=== PATIENT | female | born 1945 | race Caucasian/White ===

== ENCOUNTER 2019-04-19 18:33 | Inpatient (IN) | payer MEDICARE, MEDICAID ==
--- NOTE | 2019-04-19 18:51 | ED Physician Chart ---
ED Chief Complaint/HPI - Patient Information Date Seen:: 04/19/19 Time Seen:: 18:46 Chief Complaint:: cough History of Present Illness:: this is a 73 yo old female sent from the [facility] for an evaluation and treatment of lung congestion with a deep cough Allergies:: Allergies Allergy/AdvReac Type Severity Reaction Status Date / Time Penicillins Allergy Verified 04/19/19 18:36 Historian:: Patient, Medical Records Review:: Nurse's Note Reviewed, Old Chart Reviewed ED Review of Systems - Review of Systems General/Constitutional: No fever, No chills, No weight loss, No weakness, No diaphoresis, No edema, No loss of appetite Skin: No skin lesions, No rash, No bruising Head: No headache, No light-headedness Eyes: No loss of vision, No pain, No diplopia ENT: No earache, No nasal drainage, No sore throat, No tinnitus Neck: No neck pain, No swelling, No thyromegaly, No stiffness, No mass noted Cardio Vascular: No chest pain, No palpitations, No PND, No orthopnea, No edema Pulmonary: No SOB, Cough, No sputum, No wheezing GI: No nausea, No vomiting, No diarrhea, No pain, No melena, No hematochezia, No constipation, No hematemesis G/U: No dysuria, No frequency, No hematuria Musculoskeletal: No bone or joint pain, No back pain, No muscle pain Endocrine: No polyuria, No polydipsia Psychiatric: No prior psych history, No depression, No anxiety, No suicidal ideation Hematopoietic: No bruising, No lymphadenopathy Allergic/Immuno: No urticaria, No angioedema Neurological: No syncope, No focal symptoms, No weakness, No paresthesia, No headache, No seizure, No dizziness, No confusion, No vertigo ED Past Medical History - Past Medical History Obtainable: No Past Medical History: DM, CAD, CVA/TIA, PUD/GERD, Seizures Family History: None Social History: Non Smoker, No Alcohol, No Drug Use, Care Facility Surgical History: None Psychiatricy History: None Medication: Reviewed ED Physical Exam - Physical Examination General/Constitutional: Awake, Well-developed, well-nourished, Alert, No distress, GCS 15, Non-toxic appearing, Ambulatory Head: Atraumatic Eyes: Lids, conjuctiva normal, PERRL, EOMI Skin: Nl inspection, No rash, No skin lesions, No ecchymosis, Well hydrated, No lymphadenopathy ENMT: External ears, nose nl, Nasal exam nl, Lips, teeth, gums nl Neck: Nontender, Full ROM w/o pain, No JVD, No nuchal rigidity, No bruit, No mass, No stridor Respiratory: Nl effort/Exclusion, Clear to Auscultation, No Wheeze/Rhonchi/ Rales (there are bilateral ronchi and wheezes) Cardio Vascular: RRR, No murmur, gallop, rubs, NL S1 S2 GI: No tenderness/rebounding/guarding, No organomegaly, No hernia, Normal BS's, Nondistended, No mass/bruits, No McBurney tenderness : No CVA tenderness Extremities: No tenderness or effusion, Full ROM, normal strength in all extremities, No edema, Normal digits & nails Neuro/Psych: Alert/oriented, DTR's symmetric, Normal sensory exam, Normal motor strength, Judgement/insight normal, Mood normal, Normal gait, No focal deficits Misc: Normal back, No paraspinal tenderness ED Assessment - Assessment General Assessment: bronchitis dr saldana will check the x-ray and labs and disposition the patient ED Septic Shock - . Is Septic Shock (SBP<90, OR Lactate>4 mmol\L) present?: No
[2019-04-19 19:09] LABS: % BASOPHILS 1.8 % (0.0-2.0); % EOSINOPHILS 6.5 % (0.0-5.0); % LYMPHOCYTES 18.2 % (20.0-50.0); % NEUTROPHILS 64.5 % (40.0-80.0); BASOPHILE ABSOLUTE 0.2 Th/cumm (0-0.2); EOSINOPHILE ABSOLUTE 0.6 Th/cmm (0.1-0.4); HEMATOCRIT 34.6 % (41.0-60); HEMOGLOBIN 11.6 gm/dL (12-16); LYMPHOCYTE ABSOLUTE 1.7 Th/cmm (1.5-3.0); MEAN CORPUSCULAR HEMOGLOBIN 29.6 pg (27.0-31.0); MEAN CORPUSCULAR HGB CONC 33.7 pg (28.0-36.0); MONOCYTE ABSOLUTE 0.8 Th/cmm (0.3-1.0); NEUTROPHILE ABSOLUTE 5.8 Th/cmm (1.8-8.0); PLATELET COUNT 449 Th/cmm (150-400); RED BLOOD COUNT 3.93 Mil/cmm (3.80-5.20); RED CELL DISTRIBUTION WIDTH 15.3 % (11.5-20.0); WHITE BLOOD COUNT 9.1 Th/cmm (4.8-10.8)
[2019-04-19 19:22] LABS: INR 0.97 (0.5-1.4)
[2019-04-19 19:29] LABS: ALB/GLOB RATIO 0.7 (1.0-1.8); ALBUMIN 2.5 gm/dL (3.7-5.3); ALKALINE PHOSPHATASE 105 U/L (34-104); ANION GAP 13.9 (7.0-16.0); BILIRUBIN,TOTAL 0.3 mg/dL (0.3-1.0); BUN - UREA NITROGEN 9 mg/dL (7-25); CALCIUM SERUM 8.9 mg/dL (8.6-10.3); CARBON DIOXIDE 25.3 mEq/L (21.0-31.0); CHLORIDE 100 mEq/L (98-107); CREATININE - SERUM 0.8 mg/dL (0.6-1.2); GLUCOSE 117 mg/dL (70-105); POTASSIUM SERUM 4.2 mEq/L (3.5-5.1); SGOT 14 U/L (13-39); SGPT/ALT 10 U/L (7-52); SODIUM SERUM 135 mEq/L (136-145); TOTAL PROTEIN,SERUM 6.1 gm/dL (6.0-8.3)
[2019-04-19] MEDS ORDERED: Azithromycin 500 MG in Sodium Chloride 0.9% 250 ML IV ONE (19:37)
[2019-04-19] MEDS ORDERED: cefTRIAXone 1 GM in Sodium Chloride 0.9% 50 ML IV SCH (22:45)
[2019-04-19] MEDS: Sodium Chloride 0.45% 1,000 ML IV SCH (23:55)
[2019-04-20 06:17] LABS: URINE SOURCE CLEAN C
[2019-04-20 06:21] LABS: URINE BILIRUBIN NEGATIVE (NEGATIVE); URINE BLOOD LARGE (NEGATIVE); URINE GLUCOSE (UA) NEGATIVE (NEGATIVE); URINE KETONE NEGATIVE (NEGATIVE); URINE LEUKOCYTE ESTERASE LARGE (NEGATIVE); URINE MICROSCOPIC INDICATED? YES; URINE NITRATE NEGATIVE (NEGATIVE); URINE PH 6.5 (4.6 - 8.0); URINE PROTEIN NEGATIVE (NEGATIVE); URINE UROBILINOGEN 0.2 E.U./dL (0.2 - 1.0)
[2019-04-20 06:30] LABS: URINE CLARITY CLOUDY (CLEAR); URINE COLOR YELLOW
[2019-04-20 06:38] LABS: URINE BACTERIA FEW /hpf (NONE SEEN); URINE EPITHELIAL CELLS FEW /lpf (FEW)
[2019-04-20 06:45] LABS: URINE RBC 25-50 /hpf (0-5)
[2019-04-20] MEDS ORDERED: Levofloxacin 500mg/100mL 500 MG/100 ML BAG IV ONE (10:00)
[2019-04-20] MEDS ORDERED: VTE Chemical Prophylaxis Screen/Admission MC PRN (10:11)
[2019-04-20 10:20] VITALS: BP 96/45
[2019-04-20] MEDS ORDERED: Magnesium Hydroxide (MOM) 30 mL UDC PO PRN (12:43)
[2019-04-20] MEDS ORDERED: Fleet Enema 135 mL RC PRN (12:43)
[2019-04-20] MEDS ORDERED: Albuterol Nebulizer 2.5mg/3mL HHN PRN (12:43)
[2019-04-20] MEDS ORDERED: APAP/Oxycodone 5/325mg Tab PO PRN (12:43)
[2019-04-20] MEDS ORDERED: Heparin Sod 5,000Units/ML 5,000 UNITS/ML VIAL SUBQ SCH (12:45)
[2019-04-20] MEDS: Multivitamin w/ Minerals Tab PO SCH (14:09)
[2019-04-20] MEDS: INSULIN LISPRO SLIDING SCALE 100 UNITS/ML UNIT SUBQ SCH ×2 (16:22→20:36)
--- NOTE | 2019-04-20 16:43 | Diagnostic Imaging Report ---
CHEST X-RAY: AP view INDICATION: Congestion COMPARISON: None FINDINGS: Chronic lung changes are noted. Patient is rotated. No focal consolidation or effusions. Mild cardiomegaly is noted. Right apical pleural thickening is noted. There is spinal scoliosis. IMPRESSION: Left chronic interstitial lung changes. No focal consolidation identified Mild cardiomegaly.
--- NOTE | 2019-04-20 16:44 | History & Physical ---
ADMIT DATE: 04/20/2019 CHIEF COMPLAINT: Cough. HISTORY OF PRESENT ILLNESS: This is a 73-year-old female who was originally from senior living, was sent in for evaluation to [facility] due to cough and congestion. From Emergency Room, workup was done and the patient was diagnosed with bronchitis and the patient was hence admitted to Med/Surg unit for closer monitoring. REVIEW OF SYSTEMS: GENERAL: This is a 73-year-old female. No fever. No weakness. HEENT: No headache. No dizziness. EYES: No eye pain or blurring vision. NECK: No neck pain or nuchal rigidity. CHEST: No chest pain or palpitation. PULMONARY: Positive cough, positive chest congestion. GASTROINTESTINAL: No abdominal pain, no constipation, no diarrhea. MUSCULOSKELETAL: No joint pain. No muscle pain. SOCIAL HISTORY: The patient lives in a alf facility prior to hospitalization. Denies nicotine. Denies alcohol. Denies illicit drug use. PAST SURGICAL HISTORY: Unremarkable. FAMILY HISTORY: Unremarkable. PAST MEDICAL HISTORY: Includes hypertension, diabetes, osteoarthritis. PHYSICAL EXAMINATION: VITAL SIGNS: Temperature 98.1, heart rate of 106, blood pressure 96/45, respiration 18, 94% on 3 liters via nasal cannula. GENERAL: This is a 73-year-old female that appears as stated in no acute distress. HEENT: Head is atraumatic and normocephalic. Eyes: Bilateral conjunctivae are clear. Bilateral pupils equal, round and reactive. NECK: Supple. No JVD. CARDIOVASCULAR: S1, S2, without murmur. PULMONARY: Clear to auscultation, resonant with decreased breath sounds. GASTROINTESTINAL: Soft and nontender without guarding. Positive bowel sounds. MUSCULOSKELETAL: No clubbing. No cyanosis noted. ASSESSMENT: 1. Bronchitis. 2. Hypertension. 3. Diabetes. 4. Osteoarthritis. PLAN: We will admit the patient to Med/Surg. We will do medication reconciliation accordingly. We will have followup chest x-ray. Treatment plans were discussed with the patient's nurse. Treatment plans were discussed with Dr. Matamoros. JOB# [id number]
[2019-04-20] MEDS: Pantoprazole 40 mg EC Tab PO SCH (17:14)
[2019-04-20] MEDS: Sodium Chloride 0.45% 1,000 ML IV SCH (18:26)
[2019-04-20] MEDS: Heparin Sod 5,000Units/ML 5,000 UNITS/ML VIAL SUBQ SCH (20:35)
[2019-04-20] MEDS: Codeine /Guaifenesin 200mg-20mg/10 mL UDC PO PRN (23:27)
--- NOTE | 2019-04-21 04:00 | Consultation ---
DATE OF CONSULTATION: 04/21/2019 HISTORY OF PRESENT ILLNESS: This is a 73-year-old female with a past medical history of hypertension, diabetes mellitus type 2, and osteoarthritis, brought from alf for severe cough and congestion. On initial evaluation, the patient's temperature was 100.2 degrees Fahrenheit and WBC count was 9100. As the patient has cough, chest x-ray was performed and it showed left chronic interstitial lung changes, no focal consolidation, mild cardiomegaly. PMH: Hypertension, diabetes mellitus type 2, and osteoarthritis. ALLERGIES: NKDA. SH: Lives a the SNF. NO smoking, no alcohol or drug use. MEDICATIONS: The patient is on Rocephin and Robitussin. SOCIAL HISTORY: The patient lives in a alf. No significant history of cough. ROS: GEN: No fever, no chills. No generalized weakness. HEENT: No diplopia, no photophobia. No sorethroat. RS: There is cough, no SOB. CVS: No CP, no palpitations. GI: No N/V/D/C/ abd pains. : No dysuria. no hematuria. FLEX O WRITER OPERATOR: no headache, no dizziness. no focal wealness. PHYSICAL EXAMINATION: GEN: comfortable, not in any distress, HEENT: HEAD: NC NT. ORAL CAVITY: Moist, pink tongue, EYES: Pupil PERRLA. No pallor, no icterus. NECK: Supple, no JVD, no use of accessory neck muscles. CHEST: Vesicular breath sounds, no crackles, no wheezing, HEART: S1 and S2 WNL. ABD: Soft, NT ND, BS present. EXTREMITIES: NCCE. FLEX O WRITER OPERATOR: Alert awake oriented x3. LAB: WBC: 7,900. CXR: NAD. IMPRESSION: 1. Early pneumonia versus bronchitis. 2. Hypertension. RECOMMENDATIONS: Continue Levaquin. Thank you, Dr. Alix Matamoros, for involving me in taking care of this patient. JOB# [id number] VINCENT
[2019-04-21 05:56] LABS: % BASOPHILS 2.3 % (0.0-2.0); % EOSINOPHILS 8.2 % (0.0-5.0); % LYMPHOCYTES 20.1 % (20.0-50.0); % MONOCYTES 14.6 % (2.0-10.0); % NEUTROPHILS 54.8 % (40.0-80.0); BASOPHILE ABSOLUTE 0.2 Th/cumm (0-0.2); EOSINOPHILE ABSOLUTE 0.6 Th/cmm (0.1-0.4); HEMATOCRIT 31.8 % (41.0-60); HEMOGLOBIN 10.7 gm/dL (12-16); LYMPHOCYTE ABSOLUTE 1.6 Th/cmm (1.5-3.0); MEAN CELL VOLUME 87.5 fl (81-100); MEAN CORPUSCULAR HEMOGLOBIN 29.4 pg (27.0-31.0); MEAN CORPUSCULAR HGB CONC 33.6 pg (28.0-36.0); MONOCYTE ABSOLUTE 1.2 Th/cmm (0.3-1.0); NEUTROPHILE ABSOLUTE 4.3 Th/cmm (1.8-8.0); PLATELET COUNT 453 Th/cmm (150-400); RED BLOOD COUNT 3.63 Mil/cmm (3.80-5.20); RED CELL DISTRIBUTION WIDTH 15.3 % (11.5-20.0); WHITE BLOOD COUNT 7.9 Th/cmm (4.8-10.8)
[2019-04-21 06:09] LABS: ANION GAP 9.9 (7.0-16.0); BUN - UREA NITROGEN 5 mg/dL (7-25); CALCIUM SERUM 8.5 mg/dL (8.6-10.3); CARBON DIOXIDE 26.7 mEq/L (21.0-31.0); CHLORIDE 105 mEq/L (98-107); CREATININE - SERUM 0.7 mg/dL (0.6-1.2); GLUCOSE 99 mg/dL (70-105); POTASSIUM SERUM 3.6 mEq/L (3.5-5.1); SODIUM SERUM 138 mEq/L (136-145)
[2019-04-21] MEDS: INSULIN LISPRO SLIDING SCALE 100 UNITS/ML UNIT SUBQ SCH ×4 (06:30→21:14)
[2019-04-21] MEDS: Pantoprazole 40 mg EC Tab PO SCH (06:36)
[2019-04-21] MEDS: Multivitamin w/ Minerals Tab PO SCH (08:18)
[2019-04-21] MEDS: Lactulose 10 Gm/15 mL 30mL UDC PO PRN ×2 (08:18→16:39)
[2019-04-21] MEDS: Heparin Sod 5,000Units/ML 5,000 UNITS/ML VIAL SUBQ SCH ×2 (08:19→20:55)
[2019-04-21] MEDS: Levofloxacin 250mg/50mL 250 MG/50 ML BAG IV SCH (09:16)
[2019-04-21] MEDS: Sodium Chloride 0.45% 1,000 ML IV SCH (14:37)
[2019-04-21] MEDS: Codeine /Guaifenesin 200mg-20mg/10 mL UDC PO PRN (15:31)
--- NOTE | 2019-04-21 15:56 | Internal Medicine Prog Note ---
Internal Medicine Subjective - Subjective Service Date: 04/21/19 Patient seen and examined:: with staff Patient is:: awake, verbal, talking Patient Complaints of:: other (wants self disimpaction) Per staff patient has:: no adverse event, no episodes of fall Internal Medicine Objective - Results Result Diagrams: 04/21/19 05:10 04/21/19 05:10 Recent Labs: Laboratory Last Values WBC 7.9 Th/cmm (4.8-10.8) 04/21/19 05:10 RBC 3.63 Mil/cmm (3.80-5.20) L 04/21/19 05:10 Hgb 10.7 gm/dL (12-16) L 04/21/19 05:10 Hct 31.8 % (41.0-60) L 04/21/19 05:10 MCV 87.5 fl (81-100) 04/21/19 05:10 MCH 29.4 pg (27.0-31.0) 04/21/19 05:10 MCHC Differential 33.6 pg (28.0-36.0) 04/21/19 05:10 RDW 15.3 % (11.5-20.0) 04/21/19 05:10 Plt Count 453 Th/cmm (150-400) H 04/21/19 05:10 MPV 8.1 fl 04/21/19 05:10 Neutrophils % 54.8 % (40.0-80.0) 04/21/19 05:10 Lymphocytes % 20.1 % (20.0-50.0) 04/21/19 05:10 Monocytes % 14.6 % (2.0-10.0) H 04/21/19 05:10 Eosinophils % 8.2 % (0.0-5.0) H 04/21/19 05:10 Basophils % 2.3 % (0.0-2.0) H 04/21/19 05:10 PT 10.1 SECONDS (9.5-11.5) 04/19/19 19:00 INR 0.97 (0.5-1.4) 04/19/19 19:00 PTT (Actin FS) 25.6 SECONDS (26.0-38.0) L 04/19/19 19:00 Sodium 138 mEq/L (136-145) 04/21/19 05:10 Potassium 3.6 mEq/L (3.5-5.1) 04/21/19 05:10 Chloride 105 mEq/L (98-107) 04/21/19 05:10 Carbon Dioxide 26.7 mEq/L (21.0-31.0) 04/21/19 05:10 Anion Gap 9.9 (7.0-16.0) 04/21/19 05:10 BUN 5 mg/dL (7-25) L 04/21/19 05:10 Creatinine 0.7 mg/dL (0.6-1.2) 04/21/19 05:10 Est GFR ( Amer) TNP 04/21/19 05:10 Est GFR (Non-Af Amer) TNP 04/21/19 05:10 BUN/Creatinine Ratio 7.1 04/21/19 05:10 Glucose 99 mg/dL (70-105) 04/21/19 05:10 POC Glucose 105 MG/DL (70 - 105) 04/21/19 11:12 Calcium 8.5 mg/dL (8.6-10.3) L 04/21/19 05:10 Total Bilirubin 0.3 mg/dL (0.3-1.0) 04/19/19 19:00 AST 14 U/L (13-39) 04/19/19 19:00 ALT 10 U/L (7-52) 04/19/19 19:00 Alkaline Phosphatase 105 U/L (34-104) H 04/19/19 19:00 Troponin I < 0.01 ng/mL (0.01-0.05) L 04/19/19 19:00 Total Protein 6.1 gm/dL (6.0-8.3) 04/19/19 19:00 Albumin 2.5 gm/dL (3.7-5.3) L 04/19/19 19:00 Globulin 3.6 gm/dL 04/19/19 19:00 Albumin/Globulin Ratio 0.7 (1.0-1.8) L 04/19/19 19:00 TSH 3.65 uIU/ml (0.34-5.60) 04/19/19 19:00 Urine Source CLEAN C 04/20/19 06:00 Urine Color YELLOW 04/20/19 06:00 Urine Clarity CLOUDY (CLEAR) H 04/20/19 06:00 Urine pH 6.5 (4.6 - 8.0) 04/20/19 06:00 Ur Specific [place] 1.010 (1.005-1.030) 04/20/19 06:00 Urine Protein NEGATIVE mg/dL (NEGATIVE) 04/20/19 06:00 Urine Glucose (UA) NEGATIVE mg/dL (NEGATIVE) 04/20/19 06:00 Urine Ketones NEGATIVE mg/dL (NEGATIVE) 04/20/19 06:00 Urine Blood LARGE (NEGATIVE) H 04/20/19 06:00 Urine Nitrate NEGATIVE (NEGATIVE) 04/20/19 06:00 Urine Bilirubin NEGATIVE (NEGATIVE) 04/20/19 06:00 Urine Urobilinogen 0.2 E.U./dL (0.2 - 1.0) 04/20/19 06:00 Ur Leukocyte Esterase LARGE (NEGATIVE) H 04/20/19 06:00 Urine RBC 25-50 /hpf (0-5) H 04/20/19 06:00 Urine WBC 10-25 /hpf (0-5) H 04/20/19 06:00 Ur Epithelial Cells FEW /lpf (FEW) 04/20/19 06:00 Urine Bacteria FEW /hpf (NONE SEEN) 04/20/19 06:00 - Physical Exam Vitals and I&O: Vital Signs Temp 98.6 F 04/21/19 15:29 Pulse 103 04/21/19 15:29 Resp 20 04/21/19 15:29 BP 113/59 04/21/19 15:29 Pulse Ox 100 04/21/19 15:29 Intake & Output 04/20/19 04/21/19 04/21/19 18:59 06:59 18:59 Intake Total 1405.623 291 3117 Balance 1405.075 429 1749 Weight (lbs) 180 lb 180 lb Intake: Intake, IV Amount 123.842 7041 Sodium Chloride 0.45% 1, 290.808 9370 000 ml @ 50 mls/hr IV . Q20H RIA Rx#:[id number] Oral 480 360 Other: # Voids 2 3 # Bowel Movements 1 Weight Source Bedscale Bedscale Active Medications: Current Medications Albuterol Sulfate (Albuterol 2.5mg/3ml Neb Ud) 2.5 mg HHN Q6H PRN PRN Reason: Cough or Congestion CAUSE SOB) Ascorbic Acid (Vitamin C) 500 mg PO BID [facility] Stop: 06/19/19 16:59 Last Admin: 04/21/19 08:18 Dose: 500 mg Aspirin (Ecotrin) 81 mg PO DAILY [facility] Stop: 06/19/19 12:44 Last Admin: 04/21/19 08:18 Dose: 81 mg Bisacodyl (Dulcolax 10 Mg Supp) 10 mg RC DAILY PRN PRN Reason: Constipation Stop: 06/19/19 12:42 Bisacodyl (Dulcolax 5 Mg Ec Tab) 5 mg PO HS [facility] Stop: 06/19/19 20:59 Last Admin: 04/20/19 20:35 Dose: Not Given Docusate Sodium (Colace) 250 mg PO DAILY [facility] Stop: 06/19/19 12:44 Last Admin: 04/21/19 08:18 Dose: 250 mg Guaifenesin/Codeine Phosphate (Robitussin Ac) 5 ml PO Q8H PRN PRN Reason: Cough or Congestion Last Admin: 04/21/19 15:31 Dose: 5 ml Heparin Sodium (Porcine) (Heparin) 5,000 units SUBQ Q12H [facility] Stop: 06/19/19 20:59 Last Admin: 04/21/19 08:19 Dose: 5,000 units Sodium Chloride (Nacl 0.45%) 1,000 mls @ 50 mls/hr IV .Q20H [facility] Stop: 06/18/19 22:37 Last Admin: 04/21/19 14:37 Dose: 50 mls/hr Levofloxacin (Levaquin Pb) 250 mg in 50 mls @ 50 mls/hr IV Q24H [facility] Stop: 06/20/19 09:59 Last Admin: 04/21/19 09:16 Dose: 50 mls/hr Insulin Human Lispro (Humalog Insulin Sliding Scale) 0 units SUBQ ACHS [facility]; Protocol Stop: 06/19/19 16:29 Last Admin: 04/21/19 11:17 Dose: Not Given Lactulose (Cephulac) 20 gm PO Q8H PRN PRN Reason: Constipation Stop: 06/19/19 12:42 Last Admin: 04/21/19 08:18 Dose: 20 gm Magnesium Hydroxide (Milk Of Magnesia) 30 ml PO BID PRN PRN Reason: Constipation Stop: 06/19/19 12:42 Miscellaneous (Vte Chemical Prophylaxis Screen/ Admission) 1 ea [facility] PRN PRN PRN Reason: PROTOCOL Stop: 06/19/19 10:10 Ondansetron HCl (Zofran Odt) 4 mg PO Q8HR PRN PRN Reason: Nausea / Vomiting Stop: 06/19/19 12:42 Oxycodone/Acetaminophen (Percocet 5/325mg Oral Tab) 1 tab PO Q4H PRN PRN Reason: Pain (Moderate) Stop: 06/19/19 12:42 Pantoprazole Sodium (Protonix) 40 mg PO QDAC [facility] Stop: 06/19/19 16:29 Last Admin: 04/21/19 06:36 Dose: 40 mg Sodium Phosphate (Fleet Enema) 135 ml RC Q24H PRN PRN Reason: Constipation Stop: 06/19/19 12:42 Zinc Sulfate (Zinc Sulfate) 220 mg PO DAILY [facility] Stop: 06/19/19 16:59 Last Admin: 04/21/19 08:18 Dose: 220 mg General: NAD HEENT: NC/AT Neck: Supple, No JVD Lungs: other (no acute respiratory distress) Cardiovascular: other (refused assessment) Abdomen: other (refused assessment) Extremities: other (R lower extremity wounds- covered) Neurological: no change Other physical findings: RN reported Stage 4 sacral ulcer- pt refused to be assessed Internal Medicine Assmt/Plan - Assessment Assessment: Bronchitis HTN DM OA Stage 4 Sacral ulcer - Plan Plan: Continue to monitor labs Continue to monitor Vs Strict I/O Continue current treatments. Continue collaboration with consulting specialist, nursing team and interdisciplinary team. Fall Precaution. Wound Care
[2019-04-22] MEDS: INSULIN LISPRO SLIDING SCALE 100 UNITS/ML UNIT SUBQ SCH ×3 (06:29→17:37)
[2019-04-22] MEDS: Pantoprazole 40 mg EC Tab PO SCH (06:45)
[2019-04-22] MEDS: Multivitamin w/ Minerals Tab PO SCH (09:10)
[2019-04-22] MEDS: Heparin Sod 5,000Units/ML 5,000 UNITS/ML VIAL SUBQ SCH ×2 (09:10→22:50)
[2019-04-22] MEDS: Lactulose 10 Gm/15 mL 30mL UDC PO PRN (09:14)
[2019-04-22] MEDS: Levofloxacin 250mg/50mL 250 MG/50 ML BAG IV SCH (10:26)
--- NOTE | 2019-04-22 13:33 | Infectious Disease Prog Note ---
Infectious Disease Subjective - Review of Systems Service Date: 04/22/19 Subjective: There is no new change, no fever. Infectious Disease Objective - Results Result Diagrams: 04/21/19 05:10 04/21/19 05:10 Recent Labs: Laboratory Last Values WBC 7.9 Th/cmm (4.8-10.8) 04/21/19 05:10 RBC 3.63 Mil/cmm (3.80-5.20) L 04/21/19 05:10 Hgb 10.7 gm/dL (12-16) L 04/21/19 05:10 Hct 31.8 % (41.0-60) L 04/21/19 05:10 MCV 87.5 fl (81-100) 04/21/19 05:10 MCH 29.4 pg (27.0-31.0) 04/21/19 05:10 MCHC Differential 33.6 pg (28.0-36.0) 04/21/19 05:10 RDW 15.3 % (11.5-20.0) 04/21/19 05:10 Plt Count 453 Th/cmm (150-400) H 04/21/19 05:10 MPV 8.1 fl 04/21/19 05:10 Neutrophils % 54.8 % (40.0-80.0) 04/21/19 05:10 Lymphocytes % 20.1 % (20.0-50.0) 04/21/19 05:10 Monocytes % 14.6 % (2.0-10.0) H 04/21/19 05:10 Eosinophils % 8.2 % (0.0-5.0) H 04/21/19 05:10 Basophils % 2.3 % (0.0-2.0) H 04/21/19 05:10 PT 10.1 SECONDS (9.5-11.5) 04/19/19 19:00 INR 0.97 (0.5-1.4) 04/19/19 19:00 PTT (Actin FS) 25.6 SECONDS (26.0-38.0) L 04/19/19 19:00 Sodium 138 mEq/L (136-145) 04/21/19 05:10 Potassium 3.6 mEq/L (3.5-5.1) 04/21/19 05:10 Chloride 105 mEq/L (98-107) 04/21/19 05:10 Carbon Dioxide 26.7 mEq/L (21.0-31.0) 04/21/19 05:10 Anion Gap 9.9 (7.0-16.0) 04/21/19 05:10 BUN 5 mg/dL (7-25) L 04/21/19 05:10 Creatinine 0.7 mg/dL (0.6-1.2) 04/21/19 05:10 Est GFR ( Amer) TNP 04/21/19 05:10 Est GFR (Non-Af Amer) TNP 04/21/19 05:10 BUN/Creatinine Ratio 7.1 04/21/19 05:10 Glucose 99 mg/dL (70-105) 04/21/19 05:10 POC Glucose 88 MG/DL (70 - 105) 04/22/19 12:15 Calcium 8.5 mg/dL (8.6-10.3) L 04/21/19 05:10 Total Bilirubin 0.3 mg/dL (0.3-1.0) 04/19/19 19:00 AST 14 U/L (13-39) 04/19/19 19:00 ALT 10 U/L (7-52) 04/19/19 19:00 Alkaline Phosphatase 105 U/L (34-104) H 04/19/19 19:00 Troponin I < 0.01 ng/mL (0.01-0.05) L 04/19/19 19:00 Total Protein 6.1 gm/dL (6.0-8.3) 04/19/19 19:00 Albumin 2.5 gm/dL (3.7-5.3) L 04/19/19 19:00 Globulin 3.6 gm/dL 04/19/19 19:00 Albumin/Globulin Ratio 0.7 (1.0-1.8) L 04/19/19 19:00 TSH 3.65 uIU/ml (0.34-5.60) 04/19/19 19:00 Urine Source CLEAN C 04/20/19 06:00 Urine Color YELLOW 04/20/19 06:00 Urine Clarity CLOUDY (CLEAR) H 04/20/19 06:00 Urine pH 6.5 (4.6 - 8.0) 04/20/19 06:00 Ur Specific [place] 1.010 (1.005-1.030) 04/20/19 06:00 Urine Protein NEGATIVE mg/dL (NEGATIVE) 04/20/19 06:00 Urine Glucose (UA) NEGATIVE mg/dL (NEGATIVE) 04/20/19 06:00 Urine Ketones NEGATIVE mg/dL (NEGATIVE) 04/20/19 06:00 Urine Blood LARGE (NEGATIVE) H 04/20/19 06:00 Urine Nitrate NEGATIVE (NEGATIVE) 04/20/19 06:00 Urine Bilirubin NEGATIVE (NEGATIVE) 04/20/19 06:00 Urine Urobilinogen 0.2 E.U./dL (0.2 - 1.0) 04/20/19 06:00 Ur Leukocyte Esterase LARGE (NEGATIVE) H 04/20/19 06:00 Urine RBC 25-50 /hpf (0-5) H 04/20/19 06:00 Urine WBC 10-25 /hpf (0-5) H 04/20/19 06:00 Ur Epithelial Cells FEW /lpf (FEW) 04/20/19 06:00 Urine Bacteria FEW /hpf (NONE SEEN) 04/20/19 06:00 - Physical Exam Vitals and I&O: Vital Signs Temp 97.1 F 04/22/19 12:00 Pulse 82 04/22/19 12:00 Resp 18 04/22/19 12:00 BP 117/73 04/22/19 12:00 Pulse Ox 96 04/22/19 12:00 Intake & Output 04/21/19 04/22/19 04/22/19 18:59 06:59 18:59 Intake Total 1000 819.167 Output Total 2 Balance 1000 817.167 Weight (lbs) 81.647 kg Intake: Intake, IV Amount 1000 819.167 Levofloxacin 250mg/50mL 50 250 mg In 50 ml @ 50 mls/ hr IV Q24H [facility]IA Rx#: [id number] Sodium Chloride 0.45% 1, 1000 769.167 000 ml @ 50 mls/hr IV . Q20H [facility]IA Rx#:[id number] Output: Urine 2 Other: # Bowel Movements 0 Stool Characteristics Formed [place] Weight Source Bedscale Active Medications: Current Medications Albuterol Sulfate (Albuterol 2.5mg/3ml Neb Ud) 2.5 mg HHN Q6H PRN PRN Reason: Cough or Congestion CAUSE SOB) Last Admin: 04/22/19 07:23 Dose: 2.5 mg Ascorbic Acid (Vitamin C) 500 mg PO BID [facility] Stop: 06/19/19 16:59 Last Admin: 04/22/19 09:09 Dose: Not Given Aspirin (Ecotrin) 81 mg PO DAILY [facility] Stop: 06/19/19 12:44 Last Admin: 04/22/19 09:10 Dose: Not Given Bisacodyl (Dulcolax 10 Mg Supp) 10 mg RC DAILY PRN PRN Reason: Constipation Stop: 06/19/19 12:42 Bisacodyl (Dulcolax 5 Mg Ec Tab) 5 mg PO HS [facility] Stop: 06/19/19 20:59 Last Admin: 04/21/19 20:55 Dose: 5 mg Docusate Sodium (Colace) 250 mg PO DAILY [facility] Stop: 06/19/19 12:44 Last Admin: 04/22/19 09:10 Dose: Not Given Guaifenesin/Codeine Phosphate (Robitussin Ac) 5 ml PO Q8H PRN PRN Reason: Cough or Congestion Last Admin: 04/21/19 15:31 Dose: 5 ml Heparin Sodium (Porcine) (Heparin) 5,000 units SUBQ Q12H [facility] Stop: 06/19/19 20:59 Last Admin: 04/22/19 09:10 Dose: Not Given Sodium Chloride (Nacl 0.45%) 1,000 mls @ 50 mls/hr IV .Q20H [facility] Stop: 06/18/19 22:37 Last Infusion: 04/22/19 06:00 Dose: 50 mls/hr Levofloxacin (Levaquin Pb) 250 mg in 50 mls @ 50 mls/hr IV Q24H [facility] Stop: 06/20/19 09:59 Last Admin: 04/22/19 10:26 Dose: 50 mls/hr Insulin Human Lispro (Humalog Insulin Sliding Scale) 0 units SUBQ ACHS [facility]; Protocol Stop: 06/19/19 16:29 Last Admin: 04/22/19 13:26 Dose: Not Given Lactulose (Cephulac) 20 gm PO Q8H PRN PRN Reason: Constipation Stop: 06/19/19 12:42 Last Admin: 04/22/19 09:14 Dose: 20 gm Magnesium Hydroxide (Milk Of Magnesia) 30 ml PO BID PRN PRN Reason: Constipation Stop: 06/19/19 12:42 Miscellaneous (Vte Chemical Prophylaxis Screen/ Admission) 1 ea [facility] PRN PRN PRN Reason: PROTOCOL Stop: 06/19/19 10:10 Ondansetron HCl (Zofran Odt) 4 mg PO Q8HR PRN PRN Reason: Nausea / Vomiting Stop: 06/19/19 12:42 Oxycodone/Acetaminophen (Percocet 5/325mg Oral Tab) 1 tab PO Q4H PRN PRN Reason: Pain (Moderate) Stop: 06/19/19 12:42 Pantoprazole Sodium (Protonix) 40 mg PO QDAC [facility] Stop: 06/19/19 16:29 Last Admin: 04/22/19 06:45 Dose: 40 mg Sodium Phosphate (Fleet Enema) 135 ml RC Q24H PRN PRN Reason: Constipation Stop: 06/19/19 12:42 Zinc Sulfate (Zinc Sulfate) 220 mg PO DAILY [facility] Stop: 06/19/19 16:59 Last Admin: 04/22/19 09:10 Dose: Not Given General: no acute distress, well developed, well nourished HEENT: atraumatic, normocephalic, PERRLA, EOMI Neck: supple, no thyromegaly Cardiovascular: S1S2, regular Lungs: clear to auscultation bilaterally, clear to percussion Abdomen: soft, no tender, no distended Extremities: no cyanosis, no clubbing, no edema Neurological: awake, alert, oriented Skin: intact Infectious Disease Assmt/Plan - Problem List Patient Problems: All Active Problems COUGH AND CONGESTION WITH FEVER (Acute) - Assessment Assessment: 1. Early pneumonia versus bronchitis. 2. Hypertension. - Plan Plan: Continue levaquin.
--- NOTE | 2019-04-22 13:45 | Infectious Disease Prog Note ---
Infectious Disease Subjective - Review of Systems Service Date: 04/22/19 Subjective: There is no new change, no fever. Infectious Disease Objective - Results Result Diagrams: 04/21/19 05:10 04/21/19 05:10 Recent Labs: Laboratory Last Values WBC 7.9 Th/cmm (4.8-10.8) 04/21/19 05:10 RBC 3.63 Mil/cmm (3.80-5.20) L 04/21/19 05:10 Hgb 10.7 gm/dL (12-16) L 04/21/19 05:10 Hct 31.8 % (41.0-60) L 04/21/19 05:10 MCV 87.5 fl (81-100) 04/21/19 05:10 MCH 29.4 pg (27.0-31.0) 04/21/19 05:10 MCHC Differential 33.6 pg (28.0-36.0) 04/21/19 05:10 RDW 15.3 % (11.5-20.0) 04/21/19 05:10 Plt Count 453 Th/cmm (150-400) H 04/21/19 05:10 MPV 8.1 fl 04/21/19 05:10 Neutrophils % 54.8 % (40.0-80.0) 04/21/19 05:10 Lymphocytes % 20.1 % (20.0-50.0) 04/21/19 05:10 Monocytes % 14.6 % (2.0-10.0) H 04/21/19 05:10 Eosinophils % 8.2 % (0.0-5.0) H 04/21/19 05:10 Basophils % 2.3 % (0.0-2.0) H 04/21/19 05:10 PT 10.1 SECONDS (9.5-11.5) 04/19/19 19:00 INR 0.97 (0.5-1.4) 04/19/19 19:00 PTT (Actin FS) 25.6 SECONDS (26.0-38.0) L 04/19/19 19:00 Sodium 138 mEq/L (136-145) 04/21/19 05:10 Potassium 3.6 mEq/L (3.5-5.1) 04/21/19 05:10 Chloride 105 mEq/L (98-107) 04/21/19 05:10 Carbon Dioxide 26.7 mEq/L (21.0-31.0) 04/21/19 05:10 Anion Gap 9.9 (7.0-16.0) 04/21/19 05:10 BUN 5 mg/dL (7-25) L 04/21/19 05:10 Creatinine 0.7 mg/dL (0.6-1.2) 04/21/19 05:10 Est GFR ( Amer) TNP 04/21/19 05:10 Est GFR (Non-Af Amer) TNP 04/21/19 05:10 BUN/Creatinine Ratio 7.1 04/21/19 05:10 Glucose 99 mg/dL (70-105) 04/21/19 05:10 POC Glucose 88 MG/DL (70 - 105) 04/22/19 12:15 Calcium 8.5 mg/dL (8.6-10.3) L 04/21/19 05:10 Total Bilirubin 0.3 mg/dL (0.3-1.0) 04/19/19 19:00 AST 14 U/L (13-39) 04/19/19 19:00 ALT 10 U/L (7-52) 04/19/19 19:00 Alkaline Phosphatase 105 U/L (34-104) H 04/19/19 19:00 Troponin I < 0.01 ng/mL (0.01-0.05) L 04/19/19 19:00 Total Protein 6.1 gm/dL (6.0-8.3) 04/19/19 19:00 Albumin 2.5 gm/dL (3.7-5.3) L 04/19/19 19:00 Globulin 3.6 gm/dL 04/19/19 19:00 Albumin/Globulin Ratio 0.7 (1.0-1.8) L 04/19/19 19:00 TSH 3.65 uIU/ml (0.34-5.60) 04/19/19 19:00 Urine Source CLEAN C 04/20/19 06:00 Urine Color YELLOW 04/20/19 06:00 Urine Clarity CLOUDY (CLEAR) H 04/20/19 06:00 Urine pH 6.5 (4.6 - 8.0) 04/20/19 06:00 Ur Specific [place] 1.010 (1.005-1.030) 04/20/19 06:00 Urine Protein NEGATIVE mg/dL (NEGATIVE) 04/20/19 06:00 Urine Glucose (UA) NEGATIVE mg/dL (NEGATIVE) 04/20/19 06:00 Urine Ketones NEGATIVE mg/dL (NEGATIVE) 04/20/19 06:00 Urine Blood LARGE (NEGATIVE) H 04/20/19 06:00 Urine Nitrate NEGATIVE (NEGATIVE) 04/20/19 06:00 Urine Bilirubin NEGATIVE (NEGATIVE) 04/20/19 06:00 Urine Urobilinogen 0.2 E.U./dL (0.2 - 1.0) 04/20/19 06:00 Ur Leukocyte Esterase LARGE (NEGATIVE) H 04/20/19 06:00 Urine RBC 25-50 /hpf (0-5) H 04/20/19 06:00 Urine WBC 10-25 /hpf (0-5) H 04/20/19 06:00 Ur Epithelial Cells FEW /lpf (FEW) 04/20/19 06:00 Urine Bacteria FEW /hpf (NONE SEEN) 04/20/19 06:00 - Physical Exam Vitals and I&O: Vital Signs Temp 97.1 F 04/22/19 12:00 Pulse 82 04/22/19 12:00 Resp 18 04/22/19 12:00 BP 117/73 04/22/19 12:00 Pulse Ox 96 04/22/19 12:00 Intake & Output 04/21/19 04/22/19 04/22/19 18:59 06:59 18:59 Intake Total 1000 819.167 Output Total 2 Balance 1000 817.167 Weight (lbs) 81.647 kg Intake: Intake, IV Amount 1000 819.167 Levofloxacin 250mg/50mL 50 250 mg In 50 ml @ 50 mls/ hr IV Q24H [facility] Rx#: [id number] Sodium Chloride 0.45% 1, 1000 769.167 000 ml @ 50 mls/hr IV . Q20H [facility] Rx#:[id number] Output: Urine 2 Other: # Bowel Movements 0 Stool Characteristics Formed [place] Weight Source Bedscale Active Medications: Current Medications Albuterol Sulfate (Albuterol 2.5mg/3ml Neb Ud) 2.5 mg HHN Q6H PRN PRN Reason: Cough or Congestion CAUSE SOB) Last Admin: 04/22/19 07:23 Dose: 2.5 mg Ascorbic Acid (Vitamin C) 500 mg PO BID [facility] Stop: 06/19/19 16:59 Last Admin: 04/22/19 09:09 Dose: Not Given Aspirin (Ecotrin) 81 mg PO DAILY [facility] Stop: 06/19/19 12:44 Last Admin: 04/22/19 09:10 Dose: Not Given Bisacodyl (Dulcolax 10 Mg Supp) 10 mg RC DAILY PRN PRN Reason: Constipation Stop: 06/19/19 12:42 Bisacodyl (Dulcolax 5 Mg Ec Tab) 5 mg PO HS [facility] Stop: 06/19/19 20:59 Last Admin: 04/21/19 20:55 Dose: 5 mg Docusate Sodium (Colace) 250 mg PO DAILY [facility] Stop: 06/19/19 12:44 Last Admin: 04/22/19 09:10 Dose: Not Given Guaifenesin/Codeine Phosphate (Robitussin Ac) 5 ml PO Q8H PRN PRN Reason: Cough or Congestion Last Admin: 04/21/19 15:31 Dose: 5 ml Heparin Sodium (Porcine) (Heparin) 5,000 units SUBQ Q12H [facility] Stop: 06/19/19 20:59 Last Admin: 04/22/19 09:10 Dose: Not Given Sodium Chloride (Nacl 0.45%) 1,000 mls @ 50 mls/hr IV .Q20H [facility] Stop: 06/18/19 22:37 Last Infusion: 04/22/19 06:00 Dose: 50 mls/hr Levofloxacin (Levaquin Pb) 250 mg in 50 mls @ 50 mls/hr IV Q24H [facility] Stop: 06/20/19 09:59 Last Admin: 04/22/19 10:26 Dose: 50 mls/hr Insulin Human Lispro (Humalog Insulin Sliding Scale) 0 units SUBQ ACHS [facility]; Protocol Stop: 06/19/19 16:29 Last Admin: 04/22/19 13:26 Dose: Not Given Lactulose (Cephulac) 20 gm PO Q8H PRN PRN Reason: Constipation Stop: 06/19/19 12:42 Last Admin: 04/22/19 09:14 Dose: 20 gm Magnesium Hydroxide (Milk Of Magnesia) 30 ml PO BID PRN PRN Reason: Constipation Stop: 06/19/19 12:42 Miscellaneous (Vte Chemical Prophylaxis Screen/ Admission) 1 ea [facility] PRN PRN PRN Reason: PROTOCOL Stop: 06/19/19 10:10 Ondansetron HCl (Zofran Odt) 4 mg PO Q8HR PRN PRN Reason: Nausea / Vomiting Stop: 06/19/19 12:42 Oxycodone/Acetaminophen (Percocet 5/325mg Oral Tab) 1 tab PO Q4H PRN PRN Reason: Pain (Moderate) Stop: 06/19/19 12:42 Pantoprazole Sodium (Protonix) 40 mg PO QDAC [facility] Stop: 06/19/19 16:29 Last Admin: 04/22/19 06:45 Dose: 40 mg Sodium Phosphate (Fleet Enema) 135 ml RC Q24H PRN PRN Reason: Constipation Stop: 06/19/19 12:42 Zinc Sulfate (Zinc Sulfate) 220 mg PO DAILY [facility] Stop: 06/19/19 16:59 Last Admin: 04/22/19 09:10 Dose: Not Given General: no acute distress, well developed, well nourished HEENT: atraumatic, normocephalic, PERRLA, EOMI Neck: supple, no thyromegaly Cardiovascular: S1S2, regular Lungs: clear to auscultation bilaterally, clear to percussion Abdomen: soft, no tender, no distended, no mass Extremities: edema, no cyanosis, no clubbing Neurological: awake, alert, oriented Skin: intact Infectious Disease Assmt/Plan - Problem List Patient Problems: All Active Problems COUGH AND CONGESTION WITH FEVER (Acute) - Assessment Assessment: 1. Early pneumonia versus bronchitis. 2. ESBL Kleb UTI 3. Hypertension. - Plan Plan: Change antibiotics to Invanz or meropenem for 7 days..
[2019-04-22] MEDS: Meropenem 500 MG in Sodium Chloride 0.9% 100 ML IV SCH ×2 (15:41→22:51)
[2019-04-22] MEDS: Sodium Chloride 0.45% 1,000 ML IV SCH (18:04)
[2019-04-22] MEDS: Codeine /Guaifenesin 200mg-20mg/10 mL UDC PO PRN (22:50)
[2019-04-23] MEDS: INSULIN LISPRO SLIDING SCALE 100 UNITS/ML UNIT SUBQ SCH ×3 (01:42→13:12)
[2019-04-23] MEDS: Meropenem 500 MG in Sodium Chloride 0.9% 100 ML IV SCH ×2 (06:31→15:21)
[2019-04-23] MEDS: Heparin Sod 5,000Units/ML 5,000 UNITS/ML VIAL SUBQ SCH (09:28)
[2019-04-23] MEDS: Pantoprazole 40 mg EC Tab PO SCH (13:12)
[2019-04-23] MEDS ORDERED: Venelex 60gm Tube TP SCH (15:15)
[2019-04-23] MEDS: Multivitamin w/ Minerals Tab PO SCH (15:20)
--- NOTE | 2019-04-23 16:04 | Internal Medicine Prog Note ---
Internal Medicine Subjective - Subjective Service Date: 04/23/19 Patient seen and examined:: with staff Patient is:: awake, verbal, talking Patient Complaints of:: congestion, cough, other (wants self disimpaction) Per staff patient has:: no adverse event, no episodes of fall Internal Medicine Objective - Results Result Diagrams: 04/21/19 05:10 04/21/19 05:10 Recent Labs: Laboratory Last Values WBC 7.9 Th/cmm (4.8-10.8) 04/21/19 05:10 RBC 3.63 Mil/cmm (3.80-5.20) L 04/21/19 05:10 Hgb 10.7 gm/dL (12-16) L 04/21/19 05:10 Hct 31.8 % (41.0-60) L 04/21/19 05:10 MCV 87.5 fl (81-100) 04/21/19 05:10 MCH 29.4 pg (27.0-31.0) 04/21/19 05:10 MCHC Differential 33.6 pg (28.0-36.0) 04/21/19 05:10 RDW 15.3 % (11.5-20.0) 04/21/19 05:10 Plt Count 453 Th/cmm (150-400) H 04/21/19 05:10 MPV 8.1 fl 04/21/19 05:10 Neutrophils % 54.8 % (40.0-80.0) 04/21/19 05:10 Lymphocytes % 20.1 % (20.0-50.0) 04/21/19 05:10 Monocytes % 14.6 % (2.0-10.0) H 04/21/19 05:10 Eosinophils % 8.2 % (0.0-5.0) H 04/21/19 05:10 Basophils % 2.3 % (0.0-2.0) H 04/21/19 05:10 PT 10.1 SECONDS (9.5-11.5) 04/19/19 19:00 INR 0.97 (0.5-1.4) 04/19/19 19:00 PTT (Actin FS) 25.6 SECONDS (26.0-38.0) L 04/19/19 19:00 Sodium 138 mEq/L (136-145) 04/21/19 05:10 Potassium 3.6 mEq/L (3.5-5.1) 04/21/19 05:10 Chloride 105 mEq/L (98-107) 04/21/19 05:10 Carbon Dioxide 26.7 mEq/L (21.0-31.0) 04/21/19 05:10 Anion Gap 9.9 (7.0-16.0) 04/21/19 05:10 BUN 5 mg/dL (7-25) L 04/21/19 05:10 Creatinine 0.7 mg/dL (0.6-1.2) 04/21/19 05:10 Est GFR ( Amer) TNP 04/21/19 05:10 Est GFR (Non-Af Amer) TNP 04/21/19 05:10 BUN/Creatinine Ratio 7.1 04/21/19 05:10 Glucose 99 mg/dL (70-105) 04/21/19 05:10 POC Glucose 88 MG/DL (70 - 105) 04/23/19 05:59 Calcium 8.5 mg/dL (8.6-10.3) L 04/21/19 05:10 Total Bilirubin 0.3 mg/dL (0.3-1.0) 04/19/19 19:00 AST 14 U/L (13-39) 04/19/19 19:00 ALT 10 U/L (7-52) 04/19/19 19:00 Alkaline Phosphatase 105 U/L (34-104) H 04/19/19 19:00 Troponin I < 0.01 ng/mL (0.01-0.05) L 04/19/19 19:00 Total Protein 6.1 gm/dL (6.0-8.3) 04/19/19 19:00 Albumin 2.5 gm/dL (3.7-5.3) L 04/19/19 19:00 Globulin 3.6 gm/dL 04/19/19 19:00 Albumin/Globulin Ratio 0.7 (1.0-1.8) L 04/19/19 19:00 TSH 3.65 uIU/ml (0.34-5.60) 04/19/19 19:00 Urine Source CLEAN C 04/20/19 06:00 Urine Color YELLOW 04/20/19 06:00 Urine Clarity CLOUDY (CLEAR) H 04/20/19 06:00 Urine pH 6.5 (4.6 - 8.0) 04/20/19 06:00 Ur Specific [place] 1.010 (1.005-1.030) 04/20/19 06:00 Urine Protein NEGATIVE mg/dL (NEGATIVE) 04/20/19 06:00 Urine Glucose (UA) NEGATIVE mg/dL (NEGATIVE) 04/20/19 06:00 Urine Ketones NEGATIVE mg/dL (NEGATIVE) 04/20/19 06:00 Urine Blood LARGE (NEGATIVE) H 04/20/19 06:00 Urine Nitrate NEGATIVE (NEGATIVE) 04/20/19 06:00 Urine Bilirubin NEGATIVE (NEGATIVE) 04/20/19 06:00 Urine Urobilinogen 0.2 E.U./dL (0.2 - 1.0) 04/20/19 06:00 Ur Leukocyte Esterase LARGE (NEGATIVE) H 04/20/19 06:00 Urine RBC 25-50 /hpf (0-5) H 04/20/19 06:00 Urine WBC 10-25 /hpf (0-5) H 04/20/19 06:00 Ur Epithelial Cells FEW /lpf (FEW) 04/20/19 06:00 Urine Bacteria FEW /hpf (NONE SEEN) 04/20/19 06:00 - Physical Exam Vitals and I&O: Vital Signs Temp 97.1 F 04/23/19 08:00 Pulse 85 04/23/19 08:00 Resp 18 04/23/19 08:00 BP 98/40 04/23/19 08:00 Pulse Ox 94 04/23/19 08:00 Intake & Output 04/22/19 04/23/19 04/23/19 18:59 06:59 18:59 Intake Total 2130.833 740 100 Balance 2130.833 740 100 Weight (lbs) 81.647 kg 81.647 kg Intake: Intake, IV Amount 330.833 100 100 Meropenem 500 mg In 100 100 100 Sodium Chloride 0.9% 100 ml @ 100 mls/hr IV Q8H [facility] Rx#:[id number] Sodium Chloride 0.45% 1, 230.833 000 ml @ 50 mls/hr IV . Q20H [facility] Rx#:[id number] Oral 1800 640 Other: # Voids 3 3 # Bowel Movements 0 Stool Characteristics Soft Weight Source Bedscale Estimated Active Medications: Current Medications Albuterol Sulfate (Albuterol 2.5mg/3ml Neb Ud) 2.5 mg HHN Q6H PRN PRN Reason: Cough or Congestion CAUSE SOB) Last Admin: 04/22/19 07:23 Dose: 2.5 mg Ascorbic Acid (Vitamin C) 500 mg PO BID [facility] Stop: 06/19/19 16:59 Last Admin: 04/23/19 15:20 Dose: Not Given Aspirin (Ecotrin) 81 mg PO DAILY [facility] Stop: 06/19/19 12:44 Last Admin: 04/23/19 09:28 Dose: Not Given Bisacodyl (Dulcolax 10 Mg Supp) 10 mg RC DAILY PRN PRN Reason: Constipation Stop: 06/19/19 12:42 Bisacodyl (Dulcolax 5 Mg Ec Tab) 5 mg PO HS [facility] Stop: 06/19/19 20:59 Last Admin: 04/23/19 01:46 Dose: Not Given [place] Oil/[place] Balsam/Trypsin (Venelex) 1 appl TP DAILY [facility] Stop: 06/22/19 15:14 Docusate Sodium (Colace) 250 mg PO DAILY [facility] Stop: 06/19/19 12:44 Last Admin: 04/23/19 09:28 Dose: Not Given Guaifenesin/Codeine Phosphate (Robitussin Ac) 5 ml PO Q8H PRN PRN Reason: Cough or Congestion Last Admin: 04/22/19 22:50 Dose: 5 ml Heparin Sodium (Porcine) (Heparin) 5,000 units SUBQ Q12H [facility] Stop: 06/19/19 20:59 Last Admin: 04/23/19 09:28 Dose: Not Given Sodium Chloride (Nacl 0.45%) 1,000 mls @ 50 mls/hr IV .Q20H [facility] Stop: 06/18/19 22:37 Last Admin: 04/22/19 18:04 Dose: 50 mls/hr Meropenem 500 mg/ Sodium (Chloride) 100 mls @ 100 mls/hr IV Q8H [facility] Stop: 06/21/19 13:59 Last Admin: 04/23/19 15:21 Dose: 100 mls/hr Insulin Human Lispro (Humalog Insulin Sliding Scale) 0 units SUBQ ACHS [facility]; Protocol Stop: 06/19/19 16:29 Last Admin: 04/23/19 13:12 Dose: Not Given Lactulose (Cephulac) 20 gm PO Q8H PRN PRN Reason: Constipation Stop: 06/19/19 12:42 Last Admin: 04/22/19 09:14 Dose: 20 gm Magnesium Hydroxide (Milk Of Magnesia) 30 ml PO BID PRN PRN Reason: Constipation Stop: 06/19/19 12:42 Miscellaneous (Vte Chemical Prophylaxis Screen/ Admission) 1 ea [facility] PRN PRN PRN Reason: PROTOCOL Stop: 06/19/19 10:10 Nystatin (Nystop) 0 units TP BID [facility] Stop: 06/22/19 16:59 Ondansetron HCl (Zofran Odt) 4 mg PO Q8HR PRN PRN Reason: Nausea / Vomiting Stop: 06/19/19 12:42 Oxycodone/Acetaminophen (Percocet 5/325mg Oral Tab) 1 tab PO Q4H PRN PRN Reason: Pain (Moderate) Stop: 06/19/19 12:42 Pantoprazole Sodium (Protonix) 40 mg PO QDAC [facility] Stop: 06/19/19 16:29 Last Admin: 04/23/19 13:12 Dose: Not Given Sodium Phosphate (Fleet Enema) 135 ml RC Q24H PRN PRN Reason: IF DULCOLAX INEFFECTIVE Stop: 06/19/19 12:42 Zinc Sulfate (Zinc Sulfate) 220 mg PO DAILY [facility] Stop: 06/19/19 16:59 Last Admin: 04/23/19 15:20 Dose: Not Given Physical Exam: 73 y/o female patient has cough and congestion. General: weak, congested, NAD HEENT: NC/AT Neck: Supple, No JVD Lungs: congested, ronchi Cardiovascular: RRR, Normal S1 Abdomen: soft Extremities: other (R lower extremity wounds- covered) Neurological: no change Internal Medicine Assmt/Plan - Assessment Assessment: Bronchitis. Hypertension. Diabetes. Osteoarthritis. - Plan Plan: Continuation of care. Monitor Labs,Monitor Chest x-ray. Continue present meds as directed. Monitor vitals, continue B/P meds. Accu-check daily, Continue DM meds as directed. Monitor Diet/Nutritional support. Respiratory treatments and Pulmonary support prn. Supplemental Oxygen prn. Aspiration precaution. Deep Suctioning prn. Pain Management. Physical therapy. Occupational therapy. Safety precaution. Supportive care. Fall precaution, frequent nursing rounds, and as needed restraints to prevent fall. Continue collaborating with consulting specialists, case management and nursing team. Will Monitor patient and continue current treatment plan as ordered. Nutritional Asmnt/Malnutr-PDOC - Dietary Evaluation Malnutrition Findings (Please click <Entered> for more info): see orders.
[2019-04-23] MEDS ORDERED: NYSTATIN 100000 UNITS/GM POWD TP SCH (17:00)
--- NOTE | 2019-05-04 00:33 | Discharge Summary ---
DATE OF DISCHARGE: 04/23/2019 HOSPITAL COURSE: The patient was admitted on 04/20/2019 and discharged on 04/23/2019. The patient went to [facility]. The patient was admitted ____ found to have bronchitis, pneumonia, hypertension, diabetes, osteoarthritis, treated for all that. The patient improved. The patient was in stable condition. The patient was discharged back to the [facility] where I will be following the patient. MEDICATIONS: See the reconciliation sheet. ACTIVITY: See the orders. JOB# [id number]
== END 2019-04-23 17:42 | DRG 177 ==
LOC: ER 18:33 → TELE 04-20 00:54
PROVIDERS: ADMIT Internal Medicine; ATTEND Internal Medicine
DX: J69.0 Pneumonitis due to inhalation of food and vomit (principal); L89.154 Pressure ulcer of sacral region, stage 4; N39.0 Urinary tract infection, site not specified; J40 Bronchitis, not specified as acute or chronic; E11.9 Type 2 diabetes mellitus without complications; M19.90 Unspecified osteoarthritis, unspecified site; I50.9 Heart failure, unspecified; I11.0 Hypertensive heart disease with heart failure; I25.10 Atherosclerotic heart disease of native coronary artery without angina pectoris; K21.9 Gastro-esophageal reflux disease without esophagitis; R56.9 Unspecified convulsions; B96.1 Klebsiella pneumoniae [K. pneumoniae] as the cause of diseases classified elsewhere; Z16.12 Extended spectrum beta lactamase (ESBL) resistance; Z86.73 Personal history of transient ischemic attack (TIA), and cerebral infarction without residual deficits
CPT/HCPCS: 36415-UA; 71045-TC; 80048-TC; 80053-TC; 81001-TC; 82948-90; 84443-TC; 84484-TC; 85025-TC; 85610-TC; 85730-TC; 87086-90; 93005; 94760; 96375; J0456; J1644; J1940; J1956; J2185; J7030; Z7610